=== PATIENT | male | born 1945 | race African-American/Black ===

== ENCOUNTER 2019-03-31 20:20 | Inpatient (IN) | payer MEDICARE, OTHER ==
[~2019-03-31] VITALS: Ht 180.3 cm; Wt 93.9 kg
[2019-03-31] MEDS ORDERED: ONDANSETRON HCL 4MG/2ML INJ IV STA (21:35)
[2019-03-31] MEDS ORDERED: MORPHINE SULFATE 4 MG/ML CPJ (NOT FOR IM USE) IV STA (21:35)
[2019-03-31 22:37] LABS: CLARITY URINE CLEAR (CLEAR); COLOR URINE YELLOW (YELLOW); KETONES URINE NEGATIVE (NEGATIVE); LEUKOCYTE ESTERASE URINE NEGATIVE (NEGATIVE); NITRITE URINE NEGATIVE (NEGATIVE); OCCULT BLOOD URINE NEGATIVE (NEGATIVE); PH URINE 5.5 (4.5-8.0); PROTEIN URINE TRACE (NEGATIVE); SPECIFIC GRAVITY URINE 1.008 (1.005-1.030); UROBILINOGEN URINE 0.2 E.U./dL (0.2-1.0)
[2019-03-31 22:46] LABS: *AMPHETAMINES SCREEN URINE NEGATIVE (NEGATIVE); *BARBITURATES SCREEN URINE NEGATIVE (NEGATIVE); *BENZODIAZEPINES SCREEN URINE NEGATIVE (NEGATIVE); *COCAINE SCREEN URINE NEGATIVE (NEGATIVE)
[2019-03-31 22:47] LABS: CANNABINOID URINE SCREEN NEGATIVE (NEGATIVE); METHADONE URINE SCREEN NEGATIVE (NEGATIVE); OPIATES URINE SCREEN NEGATIVE (NEGATIVE); PHENCYCLIDINE URINE SCREEN NEGATIVE (NEGATIVE)
[2019-03-31 23:00] LABS: BASOPHILS % 1.3 % (0.0-2.0); HEMATOCRIT. 40.5 % (42.0-52.0); HEMOGLOBIN. 13.3 g/dL (14.0-18.0); LYMPHOCYTES % 23.7 % (20.0-50.0); MEAN CORPUSCULAR HEMOGLOBIN 27.6 pg (28.0-32.0); MEAN CORPUSCULAR VOLUME 83.8 fL (80.0-94.0); MEAN PLATELET VOLUME 8.1 fl (7.4-10.4); MONOCYTES % 9.2 % (2.0-8.0); NEUTROPHILS % 61.8 % (40.0-76.0); PLATELET 176 x1000/uL (130-400); RED BLOOD CELL COUNT 4.83 mill/uL (4.7-6.1); RED CELL DISTRIBUTION WIDTH 18.6 % (11.6-14.6)
[2019-03-31 23:04] LABS: CHLORIDE 106 mEq/L (98-107)
[2019-03-31 23:06] LABS: INR 1.1; PARTIAL THROMBOPLASTIN TIME 29.3 sec (23.4-31.0); PROTHROMBIN TIME 11.6 sec (9.6-11.0)
[2019-03-31 23:09] LABS: ETHANOL BLOOD < 10 mg/dL
[2019-04-01] MEDS ORDERED: FUROSEMIDE 40MG/4ML VIAL IVP ONE (01:00)
[2019-04-01] MEDS ORDERED: ACETAMINOPHEN 650MG SUPP PR PRN (11:15)
[2019-04-01] MEDS ORDERED: CLONIDINE 0.1MG TABLET PO PRN (11:15)
[2019-04-01] MEDS ORDERED: MAGNESIUM/ALUMINUM HYDROXIDE/SIMETHICONE 30ML UDC PO PRN (11:15)
[2019-04-01] MEDS ORDERED: DOCUSATE SODIUM 100MG CAPSULE PO PRN (11:15)
[2019-04-01] MEDS ORDERED: ONDANSETRON HCL 4MG/2ML INJ IV PRN (11:15)
[2019-04-01] MEDS ORDERED: NA PHOS,M-B/NA PHOS,DI-BA ENEMA 118ML PR PRN (11:15)
[2019-04-01] MEDS ORDERED: DIPHENHYDRAMINE 50MG/ML VIAL IV PRN (11:15)
[2019-04-01] MEDS ORDERED: GUAIFENESIN 200MG/10ML SUGAR FREE UDC PO PRN (11:15)
[2019-04-01 12:42] LABS: BASOPHILS % 1.5 % (0.0-2.0); EOSINOPHILS % 6.5 % (0.0-5.0); HEMATOCRIT. 40.8 % (42.0-52.0); HEMOGLOBIN. 13.1 g/dL (14.0-18.0); LYMPHOCYTES % 28.8 % (20.0-50.0); MEAN CORPUSCULAR HEMOGLOBIN 27.1 pg (28.0-32.0); MEAN CORPUSCULAR VOLUME 84.3 fL (80.0-94.0); MONOCYTES % 10.8 % (2.0-8.0); NEUTROPHILS % 52.4 % (40.0-76.0); PLATELET 154 x1000/uL (130-400); RED BLOOD CELL COUNT 4.84 mill/uL (4.7-6.1); RED CELL DISTRIBUTION WIDTH 18.6 % (11.6-14.6)
[2019-04-01 12:51] LABS: CHLORIDE 108 mEq/L (98-107)
[2019-04-01] MEDS: FUROSEMIDE 40MG/4ML VIAL IV SCH (13:50)
[2019-04-01] MEDS ORDERED: ENOXAPARIN 40MG/0.4ML SYR SUBCUT SCH (14:00)
[2019-04-01] MEDS: SODIUM CHLORIDE 0.9% INJ 3ML FLUSH IVF SCH ×2 (14:03→22:23)
[2019-04-01 15:59] VITALS: BP 92/60
[2019-04-01 20:00] VITALS: BP 98/62
[2019-04-01 22:06] LABS: *BENZODIAZEPINES SCREEN URINE NEGATIVE (NEGATIVE); *COCAINE SCREEN URINE NEGATIVE (NEGATIVE)
[2019-04-01 22:07] LABS: *AMPHETAMINES SCREEN URINE NEGATIVE (NEGATIVE); *BARBITURATES SCREEN URINE NEGATIVE (NEGATIVE); CANNABINOID URINE SCREEN NEGATIVE (NEGATIVE); METHADONE URINE SCREEN NEGATIVE (NEGATIVE); OPIATES URINE SCREEN PRESUMTIVE POSITIVE (NEGATIVE); PHENCYCLIDINE URINE SCREEN NEGATIVE (NEGATIVE)
[2019-04-02] VITALS (7 sets, daily range): BP systolic 98–125; BP diastolic 65–76
[2019-04-02] MEDS: ACETAMINOPHEN 650MG/20.3ML UDC GT PRN (02:42)
[2019-04-02] MEDS: SODIUM CHLORIDE 0.9% INJ 3ML FLUSH IVF SCH ×3 (05:26→21:47)
[2019-04-02 07:27] LABS: BASOPHILS % 0.7 % (0.0-2.0); EOSINOPHILS % 5.1 % (0.0-5.0); HEMATOCRIT. 39.9 % (42.0-52.0); LYMPHOCYTES % 26.1 % (20.0-50.0); MEAN CORPUSCULAR HEMOGLOBIN 27.3 pg (28.0-32.0); MEAN CORPUSCULAR VOLUME 84.2 fL (80.0-94.0); MEAN PLATELET VOLUME 8.8 fl (7.4-10.4); NEUTROPHILS % 56.1 % (40.0-76.0); PLATELET 147 x1000/uL (130-400); RED BLOOD CELL COUNT 4.75 mill/uL (4.7-6.1); RED CELL DISTRIBUTION WIDTH 18.9 % (11.6-14.6)
[2019-04-02 08:04] LABS: CHLORIDE 107 mEq/L (98-107)
[2019-04-02 08:13] LABS: LDL CHOLESTEROL 83 mg/dL (5-100)
[2019-04-02] MEDS: FUROSEMIDE 40MG/4ML VIAL IV SCH (08:14)
[2019-04-02 08:15] LABS: HDL CHOLESTEROL 38 mg/dL (40-59)
[2019-04-02] MEDS: ENOXAPARIN 100MG/ML SYR SUBCUT SCH ×2 (12:52→21:50)
[2019-04-03] VITALS: BP 117/79
[2019-04-03 04:00] VITALS: BP 114/61
[2019-04-03] MEDS: SODIUM CHLORIDE 0.9% INJ 3ML FLUSH IVF SCH ×3 (05:52→21:25)
[2019-04-03 08:16] VITALS: BP 123/88
[2019-04-03] MEDS: ACETAMINOPHEN 650MG/20.3ML UDC GT PRN (08:23)
[2019-04-03] MEDS: ENOXAPARIN 100MG/ML SYR SUBCUT SCH ×2 (08:23→21:26)
[2019-04-03] MEDS: FUROSEMIDE 40MG/4ML VIAL IV SCH (08:23)
[2019-04-03] MEDS: ALBUTEROL (0.083%) 2.5MG/3ML NEB HHN SCH ×3 (08:40→21:15)
[2019-04-03 12:26] VITALS: BP 138/76
[2019-04-03 16:00] VITALS: BP 112/71
[2019-04-03 17:51] LABS: HEMATOCRIT. 40.6 % (42.0-52.0); LYMPHOCYTES % 28.3 % (20.0-50.0); MEAN CORPUSCULAR HEMOGLOBIN 27.3 pg (28.0-32.0); MEAN CORPUSCULAR VOLUME 85.2 fL (80.0-94.0); MEAN PLATELET VOLUME 9.4 fl (7.4-10.4); MONOCYTES % 13.9 % (2.0-8.0); NEUTROPHILS % 52.8 % (40.0-76.0); PLATELET 123 x1000/uL (130-400); RED BLOOD CELL COUNT 4.77 mill/uL (4.7-6.1); RED CELL DISTRIBUTION WIDTH 19.1 % (11.6-14.6)
[2019-04-03 18:04] LABS: CHLORIDE 105 mEq/L (98-107)
[2019-04-03] MEDS ORDERED: BISACODYL 10MG SUPP PR PRN (18:15)
[2019-04-03] MEDS: BISACODYL 5MG TABLET PO NR ×2 (18:18→18:22)
[2019-04-03 20:00] VITALS: BP 111/70
[2019-04-03] MEDS ORDERED: MAGNESIUM CITRATE 300ML SOLUTION PO NR (20:00)
[2019-04-03] MEDS: LACTULOSE 20G/30ML UDC PO SCH (21:25)
[2019-04-04] VITALS: BP 135/81
[2019-04-04] MEDS: HYDROCODONE/ACETAMINOPHEN 5/325MG TABLET PO PRN ×3 (00:01→19:20)
[2019-04-04] MEDS: ALBUTEROL (0.083%) 2.5MG/3ML NEB HHN SCH ×4 (01:14→21:58)
[2019-04-04 05:11] VITALS: BP 112/60
[2019-04-04] MEDS: SODIUM CHLORIDE 0.9% INJ 3ML FLUSH IVF SCH ×3 (06:02→21:45)
[2019-04-04] MEDS: LACTULOSE 20G/30ML UDC PO SCH ×3 (06:03→21:45)
[2019-04-04 07:05] LABS: HEPATITIS B SURFACE ANTIGEN NEGATIVE
[2019-04-04 07:34] LABS: HEPATITIS A AB IGM NEGATIVE (NEGATIVE)
[2019-04-04 08:00] VITALS: BP 119/93
[2019-04-04] MEDS: ENOXAPARIN 100MG/ML SYR SUBCUT SCH ×2 (09:00→21:46)
[2019-04-04] MEDS: FUROSEMIDE 40MG/4ML VIAL IV SCH (10:06)
[2019-04-04 12:00] VITALS: BP 112/73
[2019-04-04] MEDS ORDERED: DILTIAZEM HCL 5MG/ML 5ML VIAL IV PRN (12:30)
[2019-04-04 16:00] VITALS: BP 123/84
[2019-04-04] MEDS: DILTIAZEM HCL 30MG TABLET PO SCH (17:51)
[2019-04-04] MEDS: METHYLPREDNISOLONE SOD SUCC 40 MG/ML VIAL IV SCH (19:06)
[2019-04-04 20:00] VITALS: BP 117/81
[2019-04-05] VITALS: BP 110/71
[2019-04-05] MEDS: DILTIAZEM HCL 30MG TABLET PO SCH ×4 (01:38→18:36)
[2019-04-05] MEDS: METHYLPREDNISOLONE SOD SUCC 40 MG/ML VIAL IV SCH ×3 (01:52→18:36)
[2019-04-05 04:00] VITALS: BP 108/60
[2019-04-05] MEDS: SODIUM CHLORIDE 0.9% INJ 3ML FLUSH IVF SCH ×3 (05:44→22:39)
[2019-04-05] MEDS: LACTULOSE 20G/30ML UDC PO SCH ×2 (06:19→14:47)
[2019-04-05 08:00] VITALS: BP 106/81
[2019-04-05] MEDS: ALBUTEROL (0.083%) 2.5MG/3ML NEB HHN SCH ×3 (08:36→21:47)
[2019-04-05] MEDS: FUROSEMIDE 40MG/4ML VIAL IV SCH (09:44)
[2019-04-05] MEDS: ENOXAPARIN 100MG/ML SYR SUBCUT SCH ×2 (09:58→22:49)
[2019-04-05 12:02] VITALS: BP 114/75
[2019-04-05 16:00] VITALS: BP 108/54
[2019-04-05 20:00] VITALS: BP 101/69
[2019-04-05] MEDS: HYDROCODONE/ACETAMINOPHEN 5/325MG TABLET PO PRN (22:43)
[2019-04-06] VITALS: BP 113/88
[2019-04-06] MEDS: DILTIAZEM HCL 30MG TABLET PO SCH ×4 (00:07→19:53)
[2019-04-06] MEDS: ALBUTEROL (0.083%) 2.5MG/3ML NEB HHN SCH ×4 (03:05→22:12)
[2019-04-06] MEDS: METHYLPREDNISOLONE SOD SUCC 40 MG/ML VIAL IV SCH ×3 (03:24→19:53)
[2019-04-06 04:00] VITALS: BP 107/62
[2019-04-06] MEDS: SODIUM CHLORIDE 0.9% INJ 3ML FLUSH IVF SCH ×3 (05:09→22:00)
[2019-04-06 08:00] VITALS: BP 93/67
[2019-04-06] MEDS: ENOXAPARIN 100MG/ML SYR SUBCUT SCH (09:56)
[2019-04-06] MEDS: HYDROCODONE/ACETAMINOPHEN 5/325MG TABLET PO PRN (09:57)
[2019-04-06 12:00] VITALS: BP 106/78
[2019-04-06 14:22] LABS: HEMATOCRIT. 40.7 % (42.0-52.0); HEMOGLOBIN. 12.6 g/dL (14.0-18.0); MEAN CORPUSCULAR VOLUME 87.5 fL (80.0-94.0); MEAN PLATELET VOLUME 9.6 fl (7.4-10.4); PLATELET 122 x1000/uL (130-400); RED BLOOD CELL COUNT 4.65 mill/uL (4.7-6.1); RED CELL DISTRIBUTION WIDTH 18.6 % (11.6-14.6)
[2019-04-06 14:37] LABS: NUCLEATED RED BLOOD CELLS 1 /100 WBC
[2019-04-06 14:38] LABS: PLATELET ESTIMATE SLIGHTLY DECREASED
[2019-04-06 16:10] VITALS: BP 138/76
[2019-04-06] MEDS ORDERED: SODIUM POLYSTYRENE SULFONATE 15 G/60 ML BOT PO ONE ×2 (18:15)
[2019-04-06] MEDS ORDERED: SODIUM POLYSTYRENE SULFONATE 15 G/60 ML BOT PO NR (19:30)
[2019-04-06] MEDS: SODIUM CHLORIDE 0.9% 1,000 ML IV SCH (19:52)
[2019-04-06 20:00] VITALS: BP 100/67
[2019-04-06] MEDS: MORPHINE SULFATE 2 MG/ML CPJ (NOT FOR IM USE) IV PRN (21:31)
[2019-04-07] VITALS: BP 105/53
[2019-04-07 01:31] LABS: MONOTEST NEGATIVE (NEGATIVE)
[2019-04-07] MEDS: METHYLPREDNISOLONE SOD SUCC 40 MG/ML VIAL IV SCH ×2 (02:26→08:44)
[2019-04-07 04:00] VITALS: BP 90/76
[2019-04-07] MEDS: IPRATROPIUM/ALBUTEROL 0.5-3(2.5)MG/3ML NEB HHN PRN (05:14)
[2019-04-07] MEDS: SODIUM CHLORIDE 0.9% INJ 3ML FLUSH IVF SCH ×3 (05:17→20:23)
[2019-04-07] MEDS: DILTIAZEM HCL 30MG TABLET PO SCH ×4 (06:00→17:25)
[2019-04-07 08:35] LABS: HEMATOCRIT. 39.2 % (42.0-52.0); HEMOGLOBIN. 12.2 g/dL (14.0-18.0); MEAN CORPUSCULAR VOLUME 86.6 fL (80.0-94.0); MEAN PLATELET VOLUME 10.4 fl (7.4-10.4); PLATELET 111 x1000/uL (130-400); RED BLOOD CELL COUNT 4.53 mill/uL (4.7-6.1); RED CELL DISTRIBUTION WIDTH 18.6 % (11.6-14.6)
[2019-04-07 08:37] LABS: CHLORIDE 91 mEq/L (98-107)
[2019-04-07] MEDS: ENOXAPARIN 100MG/ML SYR SUBCUT SCH (08:45)
[2019-04-07 08:51] LABS: PHOSPHORUS 6.9 mg/dL (2.5-4.9)
[2019-04-07] MEDS: MORPHINE SULFATE 2 MG/ML CPJ (NOT FOR IM USE) IV PRN (10:22)
[2019-04-07] MEDS: SODIUM CHLORIDE 0.9% 1,000 ML IV SCH (10:55)
[2019-04-07 12:00] VITALS: BP 95/70
[2019-04-07] MEDS: ALBUTEROL (0.083%) 2.5MG/3ML NEB HHN SCH ×2 (12:39→20:46)
[2019-04-07 14:22] LABS: NUCLEATED RED BLOOD CELLS 3 /100 WBC; PLATELET ESTIMATE DECREASED
[2019-04-07 16:00] VITALS: BP 116/65
[2019-04-07 20:00] VITALS: BP 130/106
[2019-04-08] VITALS: BP 111/57
[2019-04-08 04:00] VITALS: BP 97/64
[2019-04-08] MEDS: DILTIAZEM HCL 30MG TABLET PO SCH ×4 (05:47→17:29)
[2019-04-08] MEDS: SODIUM CHLORIDE 0.9% 1,000 ML IV SCH ×2 (05:47→20:52)
[2019-04-08] MEDS: SODIUM CHLORIDE 0.9% INJ 3ML FLUSH IVF SCH ×3 (05:47→20:53)
[2019-04-08] MEDS: ALBUTEROL (0.083%) 2.5MG/3ML NEB HHN SCH ×4 (07:57→21:37)
[2019-04-08] MEDS: METHYLPREDNISOLONE SOD SUCC 40 MG/ML VIAL IV SCH (08:29)
[2019-04-08] MEDS: ENOXAPARIN 100MG/ML SYR SUBCUT SCH (08:29)
[2019-04-08 08:33] LABS: HEMATOCRIT. 38.8 % (42.0-52.0); HEMOGLOBIN. 12.4 g/dL (14.0-18.0); MEAN CORPUSCULAR HEMOGLOBIN 27.1 pg (28.0-32.0); MEAN CORPUSCULAR VOLUME 84.6 fL (80.0-94.0); MEAN PLATELET VOLUME 11.1 fl (7.4-10.4); PLATELET 94 x1000/uL (130-400); RED BLOOD CELL COUNT 4.59 mill/uL (4.7-6.1); RED CELL DISTRIBUTION WIDTH 18.2 % (11.6-14.6)
[2019-04-08 08:37] LABS: CHLORIDE 89 mEq/L (98-107)
[2019-04-08 08:46] VITALS: BP 97/64
[2019-04-08 11:57] VITALS: BP 98/62
[2019-04-08 14:04] LABS: INR 2.4; PROTHROMBIN TIME 23.7 sec (9.6-11.0)
[2019-04-08 14:34] LABS: NUCLEATED RED BLOOD CELLS 5 /100 WBC; PLATELET ESTIMATE DECREASED
[2019-04-08] MEDS ORDERED: ALBUMIN HUMAN 25GM/100ML (25%) IV NR (15:45)
[2019-04-08 16:10] VITALS: BP 135/91
[2019-04-08 20:00] VITALS: BP 107/81
[2019-04-08] MEDS: RIFAXIMIN 550 MG TABLET PO SCH (20:51)
[2019-04-08] MEDS: PHYTONADIONE 10MG/ML AMP SUBCUT SCH (20:52)
[2019-04-09] VITALS (9 sets, daily range): BP systolic 98–120; BP diastolic 54–76
[2019-04-09] MEDS ORDERED: LACTULOSE 20G/30ML UDC PO SCH (01:30)
[2019-04-09] MEDS: ALBUTEROL (0.083%) 2.5MG/3ML NEB HHN SCH ×3 (02:38→21:13)
[2019-04-09] MEDS: DILTIAZEM HCL 30MG TABLET PO SCH ×4 (05:00→17:44)
[2019-04-09] MEDS: SODIUM CHLORIDE 0.9% INJ 3ML FLUSH IVF SCH ×3 (05:00→20:53)
[2019-04-09 07:03] LABS: PHOSPHORUS 7.4 mg/dL (2.5-4.9)
[2019-04-09 07:09] LABS: HEMATOCRIT. 38.3 % (42.0-52.0); HEMOGLOBIN. 12.4 g/dL (14.0-18.0); MEAN CORPUSCULAR HEMOGLOBIN 27.3 pg (28.0-32.0); MEAN CORPUSCULAR VOLUME 84.1 fL (80.0-94.0); MEAN PLATELET VOLUME 10.2 fl (7.4-10.4); RED BLOOD CELL COUNT 4.55 mill/uL (4.7-6.1); RED CELL DISTRIBUTION WIDTH 18.2 % (11.6-14.6)
[2019-04-09] MEDS: METHYLPREDNISOLONE SOD SUCC 40 MG/ML VIAL IV SCH (09:17)
[2019-04-09] MEDS: PHYTONADIONE 10MG/ML AMP SUBCUT SCH (09:29)
[2019-04-09] MEDS: RIFAXIMIN 550 MG TABLET PO SCH ×2 (09:29→20:52)
[2019-04-09 11:40] LABS: NUCLEATED RED BLOOD CELLS 4 /100 WBC
[2019-04-09 11:46] LABS: PLATELET 72 x1000/uL (130-400)
[2019-04-09 12:45] LABS: CHLORIDE 98 mEq/L (98-107)
[2019-04-09] MEDS: SODIUM CHLORIDE 0.9% 1,000 ML IV SCH (15:43)
[2019-04-10] VITALS (7 sets, daily range): BP systolic 94–133; BP diastolic 61–87
[2019-04-10] MEDS: DILTIAZEM HCL 30MG TABLET PO SCH ×4 (01:13→18:00)
[2019-04-10] MEDS: IPRATROPIUM/ALBUTEROL 0.5-3(2.5)MG/3ML NEB HHN PRN (01:43)
[2019-04-10] MEDS: ALBUTEROL (0.083%) 2.5MG/3ML NEB HHN SCH ×4 (01:45→21:47)
[2019-04-10] MEDS: SODIUM CHLORIDE 0.9% INJ 3ML FLUSH IVF SCH ×3 (05:31→21:51)
[2019-04-10] MEDS: METHYLPREDNISOLONE SOD SUCC 40 MG/ML VIAL IV SCH (09:32)
[2019-04-10] MEDS: ACETAMINOPHEN 650MG/20.3ML UDC GT PRN ×2 (09:45→21:50)
[2019-04-10] MEDS: RIFAXIMIN 550 MG TABLET PO SCH ×2 (09:45→21:50)
[2019-04-10] MEDS: PHYTONADIONE 10MG/ML AMP SUBCUT SCH (09:46)
[2019-04-10] MEDS ORDERED: ALBU2.5V13 HHN (17:40)
[2019-04-10] MEDS ORDERED: DILT30TA38 PO (17:40)
[2019-04-10] MEDS: SODIUM CHLORIDE 0.9% 1,000 ML IV SCH ×2 (21:52→22:15)
[2019-04-11] VITALS: BP 130/84
[2019-04-11] MEDS: DILTIAZEM HCL 30MG TABLET PO SCH ×4 (00:11→18:00)
[2019-04-11] MEDS: AMPICILLIN 500 MG PO SCH ×2 (00:13→11:04)
[2019-04-11] MEDS: ALBUTEROL (0.083%) 2.5MG/3ML NEB HHN SCH ×4 (01:39→21:17)
[2019-04-11 04:00] VITALS: BP 122/71
[2019-04-11] MEDS: SODIUM CHLORIDE 0.9% INJ 3ML FLUSH IVF SCH ×3 (06:38→21:06)
[2019-04-11 06:54] LABS: PHOSPHORUS 7.2 mg/dL (2.5-4.9)
[2019-04-11 07:08] LABS: INR 1.4; PROTHROMBIN TIME 14.2 sec (9.6-11.0)
[2019-04-11 07:09] LABS: HEMATOCRIT. 39.8 % (42.0-52.0); HEMOGLOBIN. 12.9 g/dL (14.0-18.0); MEAN CORPUSCULAR HEMOGLOBIN 27.3 pg (28.0-32.0); MEAN CORPUSCULAR VOLUME 83.9 fL (80.0-94.0); RED BLOOD CELL COUNT 4.74 mill/uL (4.7-6.1); RED CELL DISTRIBUTION WIDTH 17.8 % (11.6-14.6)
[2019-04-11 08:00] VITALS: BP 103/67
[2019-04-11 08:36] LABS: NUCLEATED RED BLOOD CELLS 27 /100 WBC
[2019-04-11 08:43] LABS: MEAN PLATELET VOLUME 10.5 fl (7.4-10.4); PLATELET 49 x1000/uL (130-400)
[2019-04-11] MEDS: RIFAXIMIN 550 MG TABLET PO SCH ×2 (10:56→21:06)
[2019-04-11 11:52] LABS: D-DIMER 2.26 mg/L FEU (<0.50)
[2019-04-11 12:00] VITALS: BP 124/65
[2019-04-11] MEDS: SODIUM CHLORIDE 0.9% 1,000 ML IV SCH (14:55)
[2019-04-11 16:45] VITALS: BP 125/72
[2019-04-12] MEDS: AMPICILLIN 500 MG PO SCH ×3 (00:15→21:00)
[2019-04-12 00:25] VITALS: BP 110/73
[2019-04-12] MEDS: ALBUTEROL (0.083%) 2.5MG/3ML NEB HHN SCH ×3 (02:53→21:58)
[2019-04-12 04:00] VITALS: BP 105/60
[2019-04-12] MEDS: SODIUM CHLORIDE 0.9% INJ 3ML FLUSH IVF SCH ×3 (05:15→22:15)
[2019-04-12] MEDS: DILTIAZEM HCL 30MG TABLET PO SCH ×4 (05:16→18:00)
[2019-04-12 06:30] LABS: HEMATOCRIT. 40.4 % (42.0-52.0); HEMOGLOBIN. 13.2 g/dL (14.0-18.0); MEAN CORPUSCULAR HEMOGLOBIN 27.5 pg (28.0-32.0); RED BLOOD CELL COUNT 4.81 mill/uL (4.7-6.1); RED CELL DISTRIBUTION WIDTH 18.4 % (11.6-14.6)
[2019-04-12 06:32] LABS: INR 1.3; PROTHROMBIN TIME 13.4 sec (9.6-11.0)
[2019-04-12 06:39] LABS: CHLORIDE 99 mEq/L (98-107)
[2019-04-12 06:56] LABS: AMYLASE 241 IU/L (25-115)
[2019-04-12 07:00] LABS: CREATINE KINASE 129 IU/L (39-308)
[2019-04-12] MEDS: SODIUM CHLORIDE 0.9% 1,000 ML IV SCH (07:35)
[2019-04-12 07:50] LABS: NUCLEATED RED BLOOD CELLS 30 /100 WBC
[2019-04-12 07:51] LABS: PLATELET ESTIMATE DECREASED
[2019-04-12 07:52] LABS: PLATELET 52 x1000/uL (130-400)
[2019-04-12 08:00] VITALS: BP 109/76
[2019-04-12] MEDS ORDERED: MORPHINE SULFATE 2 MG/ML CPJ (NOT FOR IM USE) IV NR (08:00)
[2019-04-12] MEDS ORDERED: SODIUM BICARBONATE 4% (2.4MEQ) 5ML VIAL IV ONE (08:12)
[2019-04-12] MEDS ORDERED: LIDOCAINE HCL 1% 20ML VIAL (Pyxis) INJ ONE (08:12)
[2019-04-12] MEDS ORDERED: CEFAZOLIN 1000MG PREMIX 50 ML IV SCH (10:00)
[2019-04-12] MEDS: RIFAXIMIN 550 MG TABLET PO SCH ×2 (10:18→22:15)
[2019-04-12 12:00] VITALS: BP 116/73
[2019-04-12] MEDS: SORBITOL 70% SOLN 30ML PO SCH (12:14)
[2019-04-12] MEDS: DOCUSATE SODIUM 250MG CAPSULE PO SCH ×2 (12:14→19:41)
[2019-04-12 13:06] LABS: ACTIN (SMOOTH MUSCLE) ANTIBODY 10 Units (0-19)
[2019-04-12] MEDS ORDERED: AMPICILLIN 1,000 MG in SODIUM CHLORIDE 0.9% 50 ML IV SCH (13:30)
[2019-04-12] MEDS: AMPICILLIN 1000MG in SODIUM CHLORIDE 0.9% 50ML IV SCH (19:40)
[2019-04-12 20:00] VITALS: BP 105/70
[2019-04-12] MEDS ORDERED: BISACODYL 5MG TABLET PO NR (20:45)
[2019-04-12] MEDS: LACTULOSE 20G/30ML UDC PO SCH (22:15)
[2019-04-13] VITALS (11 sets, daily range): BP systolic 100–137; BP diastolic 50–90
[2019-04-13] MEDS: ALBUTEROL (0.083%) 2.5MG/3ML NEB HHN SCH ×4 (01:32→21:27)
[2019-04-13] MEDS: DILTIAZEM HCL 30MG TABLET PO SCH ×4 (02:51→17:49)
[2019-04-13] MEDS: AMPICILLIN 1000MG in SODIUM CHLORIDE 0.9% 50ML IV SCH ×2 (02:51→15:23)
[2019-04-13] MEDS: SODIUM CHLORIDE 0.9% 1,000 ML IV SCH ×2 (02:53→17:46)
[2019-04-13] MEDS: LACTULOSE 20G/30ML UDC PO SCH ×3 (06:21→22:59)
[2019-04-13] MEDS: SODIUM CHLORIDE 0.9% INJ 3ML FLUSH IVF SCH ×3 (06:21→22:00)
[2019-04-13 07:53] LABS: HEMATOCRIT. 38.4 % (42.0-52.0); HEMOGLOBIN. 12.4 g/dL (14.0-18.0); MEAN CORPUSCULAR HEMOGLOBIN 27.2 pg (28.0-32.0); RED BLOOD CELL COUNT 4.57 mill/uL (4.7-6.1); RED CELL DISTRIBUTION WIDTH 17.8 % (11.6-14.6)
[2019-04-13 08:16] LABS: PHOSPHORUS 6.4 mg/dL (2.5-4.9)
[2019-04-13] MEDS ORDERED: DOCUSATE SODIUM 250MG CAPSULE PO SCH (09:00)
[2019-04-13] MEDS: AMPICILLIN 500 MG PO SCH (09:00)
[2019-04-13] MEDS: SORBITOL 70% SOLN 30ML PO SCH (09:07)
[2019-04-13] MEDS: DOCUSATE SODIUM 250MG CAPSULE PO SCH ×2 (09:07→17:00)
[2019-04-13 09:19] LABS: NUCLEATED RED BLOOD CELLS 12 /100 WBC
[2019-04-13 13:06] LABS: ANA IFA Negative (.)
[2019-04-13] MEDS ORDERED: BISACODYL 5MG TABLET PO ONE (17:45)
[2019-04-13] MEDS ORDERED: BISACODYL 5MG TABLET PO NR (18:00)
[2019-04-14] VITALS: BP 96/68
[2019-04-14] MEDS: ALBUTEROL (0.083%) 2.5MG/3ML NEB HHN SCH ×4 (00:12→21:29)
[2019-04-14] MEDS: AMPICILLIN 1000MG in SODIUM CHLORIDE 0.9% 50ML IV SCH ×2 (03:03→14:47)
[2019-04-14 04:00] VITALS: BP 94/60
[2019-04-14] MEDS: DILTIAZEM HCL 30MG TABLET PO SCH ×5 (06:00→23:14)
[2019-04-14] MEDS: SODIUM CHLORIDE 0.9% INJ 3ML FLUSH IVF SCH ×3 (06:00→21:02)
[2019-04-14] MEDS: LACTULOSE 20G/30ML UDC PO SCH ×2 (06:24→14:47)
[2019-04-14 07:11] LABS: HEMATOCRIT. 40.8 % (42.0-52.0); MEAN CORPUSCULAR VOLUME 84.4 fL (80.0-94.0); MEAN PLATELET VOLUME 9.1 fl (7.4-10.4); PLATELET 67 x1000/uL (130-400); RED BLOOD CELL COUNT 4.83 mill/uL (4.7-6.1); RED CELL DISTRIBUTION WIDTH 17.7 % (11.6-14.6)
[2019-04-14 08:00] VITALS: BP 111/86
[2019-04-14 08:06] LABS: PHOSPHORUS 4.8 mg/dL (2.5-4.9)
[2019-04-14] MEDS: SODIUM CHLORIDE 0.9% 1,000 ML IV SCH ×2 (09:35→18:42)
[2019-04-14 09:55] LABS: NUCLEATED RED BLOOD CELLS 1 /100 WBC
[2019-04-14 09:56] LABS: PLATELET ESTIMATE DECREASED
[2019-04-14] MEDS: DOCUSATE SODIUM 250MG CAPSULE PO SCH ×2 (10:40→17:19)
[2019-04-14] MEDS: SORBITOL 70% SOLN 30ML PO SCH (10:40)
[2019-04-14 12:00] VITALS: BP 108/67
[2019-04-14] MEDS: ACETAMINOPHEN 650MG/20.3ML UDC GT PRN (13:38)
[2019-04-14 15:51] LABS: INR 1.4; PROTHROMBIN TIME 13.8 sec (9.6-11.0)
[2019-04-14 16:00] VITALS: BP 103/64
[2019-04-14 18:19] LABS: HEMATOCRIT. 37.6 % (42.0-52.0); HEMOGLOBIN. 12.1 g/dL (14.0-18.0); MEAN CORPUSCULAR HEMOGLOBIN 26.9 pg (28.0-32.0); MEAN PLATELET VOLUME 8.9 fl (7.4-10.4); PLATELET 79 x1000/uL (130-400); RED BLOOD CELL COUNT 4.48 mill/uL (4.7-6.1); RED CELL DISTRIBUTION WIDTH 17.9 % (11.6-14.6)
[2019-04-14] MEDS: HYDROCODONE/ACETAMINOPHEN 5/325MG TABLET PO PRN ×2 (18:30→23:10)
[2019-04-14 19:52] LABS: NUCLEATED RED BLOOD CELLS 2 /100 WBC; PLATELET ESTIMATE DECREASED
[2019-04-14 20:00] VITALS: BP 100/72
[2019-04-14] MEDS ORDERED: LACTULOSE 20G/30ML UDC PO SCH (20:30)
[2019-04-14] MEDS ORDERED: VANCOMYCIN 1250MG in DEXTROSE 5% WATER 250ML IV SCH (21:00)
[2019-04-14] MEDS ORDERED: LACTULOSE 20G/30ML UDC PO PRN (21:00)
[2019-04-15] VITALS: BP 106/67
[2019-04-15] MEDS: ALBUTEROL (0.083%) 2.5MG/3ML NEB HHN SCH ×2 (01:13→09:53)
[2019-04-15] MEDS: AMPICILLIN 1000MG in SODIUM CHLORIDE 0.9% 50ML IV SCH ×2 (02:22→14:05)
[2019-04-15 04:00] VITALS: BP 110/69
[2019-04-15] MEDS: SODIUM CHLORIDE 0.9% INJ 3ML FLUSH IVF SCH (05:11)
[2019-04-15] MEDS: DILTIAZEM HCL 30MG TABLET PO SCH ×3 (05:12→14:16)
[2019-04-15 06:50] LABS: BASOPHILS % 0.1 % (0.0-2.0); EOSINOPHILS % 0.5 % (0.0-5.0); HEMATOCRIT. 35.8 % (42.0-52.0); HEMOGLOBIN. 11.9 g/dL (14.0-18.0); LYMPHOCYTES % 9.7 % (20.0-50.0); MEAN CORPUSCULAR HEMOGLOBIN 27.7 pg (28.0-32.0); MEAN CORPUSCULAR VOLUME 83.6 fL (80.0-94.0); MEAN PLATELET VOLUME 9.1 fl (7.4-10.4); MONOCYTES % 9.1 % (2.0-8.0); NEUTROPHILS % 80.6 % (40.0-76.0); PLATELET 75 x1000/uL (130-400); RED BLOOD CELL COUNT 4.28 mill/uL (4.7-6.1); RED CELL DISTRIBUTION WIDTH 17.2 % (11.6-14.6)
[2019-04-15 07:34] LABS: PHOSPHORUS 4.7 mg/dL (2.5-4.9)
[2019-04-15 08:00] VITALS: BP 95/61
[2019-04-15] MEDS: DOCUSATE SODIUM 250MG CAPSULE PO SCH (09:30)
[2019-04-15] MEDS: SORBITOL 70% SOLN 30ML PO SCH (09:30)
[2019-04-15 12:00] VITALS: BP 111/64
[2019-04-15 13:29] VITALS: BP 111/64
== END 2019-04-15 15:00 | DRG 291 ==
LOC: ER 20:20 → 7WST 04-01 01:26 → ENRESERV 04-01 10:38
PROVIDERS: ADMIT Family Medicine; ATTEND Family Medicine
PROC: B54BZZA Ultrasonography of Right Lower Extremity Veins, Guidance (ICD-10-PCS; principal; 2019-04-08)
PROC: 06HY33Z Insertion of Infusion Device into Lower Vein, Percutaneous Approach (ICD-10-PCS; 2019-04-08)
PROC: B51B1ZA Fluoroscopy of Right Lower Extremity Veins using Low Osmolar Contrast, Guidance (ICD-10-PCS; 2019-04-08)
PROC: 5A1D70Z Performance of Urinary Filtration, Intermittent, Less than 6 Hours Per Day (ICD-10-PCS; 2019-04-08)
PROC: 30233K1 Transfusion of Nonautologous Frozen Plasma into Peripheral Vein, Percutaneous Approach (ICD-10-PCS; 2019-04-09)
PROC: 5A1D70Z Performance of Urinary Filtration, Intermittent, Less than 6 Hours Per Day (ICD-10-PCS; 2019-04-09)
PROC: 5A1D70Z Performance of Urinary Filtration, Intermittent, Less than 6 Hours Per Day (ICD-10-PCS; 2019-04-11)
PROC: 02HV33Z Insertion of Infusion Device into Superior Vena Cava, Percutaneous Approach (ICD-10-PCS; 2019-04-12)
PROC: B548ZZA Ultrasonography of Superior Vena Cava, Guidance (ICD-10-PCS; 2019-04-12)
PROC: B5181ZA Fluoroscopy of Superior Vena Cava using Low Osmolar Contrast, Guidance (ICD-10-PCS; 2019-04-12)
PROC: 0JH63XZ Insertion of Tunneled Vascular Access Device into Chest Subcutaneous Tissue and Fascia, Percutaneous Approach (ICD-10-PCS; 2019-04-12)
PROC: 30233N1 Transfusion of Nonautologous Red Blood Cells into Peripheral Vein, Percutaneous Approach (ICD-10-PCS; 2019-04-13)
PROC: 5A1D70Z Performance of Urinary Filtration, Intermittent, Less than 6 Hours Per Day (ICD-10-PCS; 2019-04-13)
DX: I13.0 Hypertensive heart and chronic kidney disease with heart failure and stage 1 through stage 4 chronic kidney disease, or unspecified chronic kidney disease (principal); I50.23 Acute on chronic systolic (congestive) heart failure; K72.00 Acute and subacute hepatic failure without coma; K85.90 Acute pancreatitis without necrosis or infection, unspecified; I48.92 Unspecified atrial flutter; R18.8 Other ascites; N17.9 Acute kidney failure, unspecified; I48.20 Chronic atrial fibrillation, unspecified; N39.0 Urinary tract infection, site not specified; J44.9 Chronic obstructive pulmonary disease, unspecified; I25.10 Atherosclerotic heart disease of native coronary artery without angina pectoris; I42.9 Cardiomyopathy, unspecified; K59.00 Constipation, unspecified; D69.6 Thrombocytopenia, unspecified; E83.39 Other disorders of phosphorus metabolism; N28.1 Cyst of kidney, acquired; E87.5 Hyperkalemia; N18.9 Chronic kidney disease, unspecified; R74.0 Nonspecific elevation of levels of transaminase and lactic acid dehydrogenase [LDH]; B95.2 Enterococcus as the cause of diseases classified elsewhere; F10.20 Alcohol dependence, uncomplicated; I25.2 Old myocardial infarction; Z86.718 Personal history of other venous thrombosis and embolism; Z95.810 Presence of automatic (implantable) cardiac defibrillator; Z95.828 Presence of other vascular implants and grafts; Z86.19 Personal history of other infectious and parasitic diseases; Z87.891 Personal history of nicotine dependence; Z88.8 Allergy status to other drugs, medicaments and biological substances
CPT/HCPCS: 36415; 36558; 71045; 73630; 74018; 74176; 76700; 76770; 76937; 77001; 80048; 80053; 80061; 80076; 80305; 80307; 80320; 81003; 82140; 82150; 82248; 82550; 82570; 83605; 83735; 83880; 83935; 84100; 84132; 84145; 84300; 84484; 85025; 85049; 85379; 85384; 86022; 86256; 86308; 86645; 86705; 86706; 86709; 86803; 86850; 86900; 86927; 87077; 87186; 87340; 87389; 93005; 93306; 93976; 94618; 94640; 97116; 97162; 99285; A6261; C1750; C1752; C1769; J0290; J0690; J1200; J1642; J1650; J1940; J2270; J2405; J2920; J3370; J3430; J3490; J7030; J7060; J7611; J7620; P9017; P9034; P9047; G0480

== ENCOUNTER 2019-04-16 11:45 | Inpatient (IN) | payer MEDICARE, OTHER ==
[~2019-04-16] VITALS: Ht 154.3 cm; Wt 96.2 kg
[2019-04-16] VITALS (23 sets, daily range): BP systolic 71–126; BP diastolic 39–95
[~2019-04-16 11:45] MED LIST: ALBU2.5V13 HHN; DILT30TA38 PO
[2019-04-16] MEDS ORDERED: SODIUM CHLORIDE 0.9% 500 ML IV ONE (12:14)
[2019-04-16] MEDS ORDERED: NOREPINEPHRINE 4MG/250ML PMX 250 ML IV ONE ×2 (12:30→15:30)
[2019-04-16 12:33] LABS: HEMATOCRIT. 34.8 % (42.0-52.0); HEMOGLOBIN. 11.3 g/dL (14.0-18.0); MEAN CORPUSCULAR HEMOGLOBIN 27.6 pg (28.0-32.0); MEAN CORPUSCULAR VOLUME 85.2 fL (80.0-94.0); MEAN PLATELET VOLUME 9.3 fl (7.4-10.4); PLATELET 66 x1000/uL (130-400); RED BLOOD CELL COUNT 4.08 mill/uL (4.7-6.1); RED CELL DISTRIBUTION WIDTH 17.8 % (11.6-14.6)
[2019-04-16 12:36] LABS: CHLORIDE 101 mEq/L (98-107)
[2019-04-16 12:42] LABS: INR 1.4; PROTHROMBIN TIME 13.9 sec (9.6-11.0)
[2019-04-16] MEDS ORDERED: SODIUM CHLORIDE 0.9% 1000ML BAG (SEPSIS BOLUS) IV ONE (13:15)
[2019-04-16] MEDS ORDERED: PIPERACILLIN/TAZ 3.375G PREMIX 50 ML IV ONE (13:15)
[2019-04-16] MEDS ORDERED: VANCOMYCIN 1 G PREMIX 200 ML IV ONE (13:15)
[2019-04-16] MEDS ORDERED: SODIUM BICARBONATE 4% (2.4MEQ) 5ML VIAL IV ONE (13:23)
[2019-04-16 13:40] LABS: PLATELET ESTIMATE DECREASED
[2019-04-16] MEDS ORDERED: IPRATROPIUM/ALBUTEROL 0.5-3(2.5)MG/3ML NEB HHN PRN (15:30)
[2019-04-16] MEDS ORDERED: NOREPINEPHRINE 8 MG in DEXT 5% WATER 242 ML IV PRN ×2 (15:30→18:00)
[2019-04-16 16:04] LABS: CLARITY URINE CLOUDY (CLEAR); COLOR URINE DARK YELLOW (YELLOW); KETONES URINE NEGATIVE (NEGATIVE); LEUKOCYTE ESTERASE URINE NEGATIVE (NEGATIVE); NITRITE URINE NEGATIVE (NEGATIVE); OCCULT BLOOD URINE NEGATIVE (NEGATIVE); PROTEIN URINE 2+ (NEGATIVE); SPECIFIC GRAVITY URINE 1.014 (1.005-1.030)
[2019-04-16 17:04] LABS: BG BASE EXCESS -4.3 mmol/L (-2.0-2.0); BG CARBOXYHEMOGLOBIN 0.6 % (0.5-1.5); BG DEOXYHEMOGLOBIN 0.7 % (0.0-5.0); BG FRACTION INSPIRED OXYGEN 100; BG HCO3 ACT 19.8 mmol/L (22.0-26.0); BG METHEMOGLOBIN 0.3 % (0.0-1.5); BG OXYGEN SATURATION 99.3 % (92.0-98.5); BG OXYHEMOGLOBIN 98.4 % (94.0-97.0); BG PCO2 33.4 mmHg (35.0-45.0); BG PH 7.391 (7.350-7.450); BG PO2 216.7 mmHg (75.0-100.0); BG SAMPLE SITE RIGHT RADIAL; BG TOTAL HEMOGLOBIN 12.2 g/dL (12.0-18.0); BG VENT MODE MASK - NRB
[2019-04-16] MEDS ORDERED: PHENYLEPHRINE 40 MG in DEXT 5% WATER 246 ML IV PRN ×2 (18:45→22:49)
[2019-04-16] MEDS ORDERED: NOREPINEPHRINE 32 MG in DEXT 5% WATER 468 ML IV PRN ×2 (22:49→23:00)
[2019-04-16] MEDS ORDERED: PHENYLEPHRINE 80 MG in DEXT 5% WATER 492 ML IV PRN (22:59)
[2019-04-16] MEDS: PIPERACILLIN/TAZOBACTAM 2.25 G in DEXTROSE 5% WATER 50 ML IV SCH (23:52)
[2019-04-17] VITALS (105 sets, daily range): BP systolic 72–209; BP diastolic 16–131
[2019-04-17] MEDS ORDERED: VANCOMYCIN 750 MG PREMIX 150 ML IV SCH (02:00)
[2019-04-17 02:01] LABS: T4 FREE 1.02 ng/dL (0.76-1.46)
[2019-04-17] MEDS: PIPERACILLIN/TAZOBACTAM 2.25 G in DEXTROSE 5% WATER 50 ML IV SCH ×3 (05:01→16:36)
[2019-04-17 07:50] LABS: BG BASE EXCESS -1.4 mmol/L (-2.0-2.0); BG CARBOXYHEMOGLOBIN 0.9 % (0.5-1.5); BG DEOXYHEMOGLOBIN 1.9 % (0.0-5.0); BG FRACTION INSPIRED OXYGEN 28; BG HCO3 ACT 21.4 mmol/L (22.0-26.0); BG METHEMOGLOBIN 0.3 % (0.0-1.5); BG OXYGEN SATURATION 98.1 % (92.0-98.5); BG OXYHEMOGLOBIN 96.9 % (94.0-97.0); BG PCO2 30.2 mmHg (35.0-45.0); BG PH 7.469 (7.350-7.450); BG SAMPLE SITE RIGHT BRACHIAL; BG TOTAL HEMOGLOBIN 11.8 g/dL (12.0-18.0); BG VENT MODE NASAL CANNULA
[2019-04-17] MEDS ORDERED: ALBUMIN HUMAN 25GM/100ML (25%) IV SCH (08:15)
[2019-04-17] MEDS: TRAMADOL 50MG TABLET PO PRN (08:43)
[2019-04-17] MEDS: PANTOPRAZOLE SODIUM 40 MG/VIAL IV SCH (08:44)
[2019-04-17 09:15] LABS: HEMATOCRIT. 35.5 % (42.0-52.0); HEMOGLOBIN. 11.6 g/dL (14.0-18.0); MEAN CORPUSCULAR HEMOGLOBIN 27.3 pg (28.0-32.0); MEAN CORPUSCULAR VOLUME 83.8 fL (80.0-94.0); PLATELET 82 x1000/uL (130-400); RED BLOOD CELL COUNT 4.23 mill/uL (4.7-6.1); RED CELL DISTRIBUTION WIDTH 17.8 % (11.6-14.6)
[2019-04-17 09:29] LABS: CHLORIDE 106 mEq/L (98-107)
[2019-04-17 09:37] LABS: PHOSPHORUS 4.1 mg/dL (2.5-4.9)
[2019-04-17] MEDS: HYDROCORTISONE SOD SUCCINATE 100 MG/2 ML VIAL IV SCH ×2 (11:03→19:38)
[2019-04-17] MEDS: MORPHINE SULFATE 2 MG/ML CPJ (NOT FOR IM USE) IV PRN ×2 (11:04→17:02)
[2019-04-17 11:41] LABS: NUCLEATED RED BLOOD CELLS 1 /100 WBC
[2019-04-17 11:42] LABS: PLATELET ESTIMATE DECREASED
[2019-04-18] VITALS (94 sets, daily range): BP systolic 78–158; BP diastolic 15–96
[2019-04-18] MEDS: IPRATROPIUM/ALBUTEROL 0.5-3(2.5)MG/3ML NEB HHN SCH ×4 (00:23→20:50)
[2019-04-18] MEDS: PIPERACILLIN/TAZOBACTAM 2.25 G in DEXTROSE 5% WATER 50 ML IV SCH ×5 (00:55→23:23)
[2019-04-18] MEDS: HYDROCORTISONE SOD SUCCINATE 100 MG/2 ML VIAL IV SCH ×3 (04:18→20:43)
[2019-04-18 05:41] LABS: HEMATOCRIT. 35.7 % (42.0-52.0); HEMOGLOBIN. 11.7 g/dL (14.0-18.0); MEAN CORPUSCULAR HEMOGLOBIN 27.8 pg (28.0-32.0); MEAN CORPUSCULAR VOLUME 84.7 fL (80.0-94.0); MEAN PLATELET VOLUME 9.6 fl (7.4-10.4); PLATELET 77 x1000/uL (130-400); RED BLOOD CELL COUNT 4.22 mill/uL (4.7-6.1); RED CELL DISTRIBUTION WIDTH 17.7 % (11.6-14.6)
[2019-04-18 05:50] LABS: CHLORIDE 99 mEq/L (98-107)
[2019-04-18 05:59] LABS: PHOSPHORUS 5.5 mg/dL (2.5-4.9)
[2019-04-18 07:30] LABS: PLATELET ESTIMATE SLIGHTLY DECREASED
[2019-04-18] MEDS: PANTOPRAZOLE SODIUM 40 MG/VIAL IV SCH (08:23)
[2019-04-18] MEDS: MORPHINE SULFATE 2 MG/ML CPJ (NOT FOR IM USE) IV PRN (08:25)
[2019-04-18] MEDS ORDERED: PHENYLEPHRINE 40 MG in DEXT 5% WATER 250 ML IV PRN (10:53)
[2019-04-18] MEDS: MIDODRINE HCL 2.5MG TABLET PO SCH ×2 (13:05→16:48)
[2019-04-18] MEDS ORDERED: VANCOMYCIN 750 MG PREMIX 150 ML IV NR (17:00)
[2019-04-18] MEDS ORDERED: NOREPINEPHRINE 16 MG in DEXT 5% WATER 250 ML IV PRN (21:41)
[2019-04-19] VITALS (47 sets, daily range): BP systolic 86–174; BP diastolic 41–117
[2019-04-19] MEDS: IPRATROPIUM/ALBUTEROL 0.5-3(2.5)MG/3ML NEB HHN SCH ×4 (02:24→21:21)
[2019-04-19 05:43] LABS: HEMATOCRIT. 37.9 % (42.0-52.0); HEMOGLOBIN. 12.3 g/dL (14.0-18.0); MEAN CORPUSCULAR HEMOGLOBIN 27.5 pg (28.0-32.0); MEAN CORPUSCULAR VOLUME 84.6 fL (80.0-94.0); MEAN PLATELET VOLUME 9.3 fl (7.4-10.4); PLATELET 72 x1000/uL (130-400); RED BLOOD CELL COUNT 4.48 mill/uL (4.7-6.1)
[2019-04-19] MEDS: PIPERACILLIN/TAZOBACTAM 2.25 G in DEXTROSE 5% WATER 50 ML IV SCH ×4 (05:58→18:25)
[2019-04-19] MEDS ORDERED: HYDROCORTISONE SOD SUCCINATE 100 MG/2 ML VIAL IV SCH (06:00)
[2019-04-19 06:10] LABS: PHOSPHORUS 4.7 mg/dL (2.5-4.9)
[2019-04-19] MEDS: HYDROCORTISONE SOD SUCCINATE 100 MG/2 ML VIAL IV SCH ×2 (07:39→21:00)
[2019-04-19] MEDS: PANTOPRAZOLE SODIUM 40 MG/VIAL IV SCH (07:39)
[2019-04-19] MEDS: LEVOTHYROXINE SODIUM 25MCG TABLET PO SCH (07:39)
[2019-04-19] MEDS: MIDODRINE HCL 2.5MG TABLET PO SCH ×3 (07:39→18:24)
[2019-04-19] MEDS: MORPHINE SULFATE 2 MG/ML CPJ (NOT FOR IM USE) IV PRN (07:48)
[2019-04-19 09:37] LABS: NUCLEATED RED BLOOD CELLS 1 /100 WBC
[2019-04-19 09:38] LABS: PLATELET ESTIMATE DECREASED
[2019-04-20] MEDS: PIPERACILLIN/TAZOBACTAM 2.25 G in DEXTROSE 5% WATER 50 ML IV SCH ×4 (00:52→17:10)
[2019-04-20] MEDS: TRAMADOL 50MG TABLET PO PRN (00:52)
[2019-04-20] MEDS: IPRATROPIUM/ALBUTEROL 0.5-3(2.5)MG/3ML NEB HHN SCH ×4 (03:00→21:48)
[2019-04-20 04:00] VITALS: BP 115/60
[2019-04-20] MEDS: HYDROCORTISONE SOD SUCCINATE 100 MG/2 ML VIAL IV SCH ×2 (05:16→17:07)
[2019-04-20 08:00] VITALS: BP 99/64
[2019-04-20 08:19] LABS: HEMATOCRIT. 36.7 % (42.0-52.0); HEMOGLOBIN. 11.8 g/dL (14.0-18.0); MEAN CORPUSCULAR HEMOGLOBIN 27.1 pg (28.0-32.0); MEAN CORPUSCULAR VOLUME 84.7 fL (80.0-94.0); MEAN PLATELET VOLUME 9.2 fl (7.4-10.4); PLATELET 58 x1000/uL (130-400); RED BLOOD CELL COUNT 4.34 mill/uL (4.7-6.1); RED CELL DISTRIBUTION WIDTH 18.4 % (11.6-14.6)
[2019-04-20] MEDS: PANTOPRAZOLE SODIUM 40 MG/VIAL IV SCH (08:30)
[2019-04-20] MEDS: LEVOTHYROXINE SODIUM 25MCG TABLET PO SCH (08:30)
[2019-04-20] MEDS: MIDODRINE HCL 2.5MG TABLET PO SCH ×3 (08:31→17:07)
[2019-04-20 08:43] LABS: CHLORIDE 98 mEq/L (98-107)
[2019-04-20 08:56] LABS: PHOSPHORUS 5.3 mg/dL (2.5-4.9)
[2019-04-20 12:00] VITALS: BP 105/69
[2019-04-20] MEDS ORDERED: IPRA3AMP9 HHN (14:26)
[2019-04-20] MEDS ORDERED: MIDO2.5T PO (14:26)
[2019-04-20] MEDS ORDERED: HYDR10TA PO ×2 (14:27→14:28)
[2019-04-20] MEDS ORDERED: CORT25 PO (14:51)
[2019-04-20 16:00] VITALS: BP 92/68
[2019-04-20] MEDS ORDERED: VANCOMYCIN 1 G PREMIX 200 ML IV NR (17:00)
[2019-04-20 17:02] VITALS: BP_SYST 92; BP_SYST 95; BP_DIAS 65; BP_DIAS 68
[2019-04-20 20:00] VITALS: BP 95/58
[2019-04-21] MEDS ORDERED: FAMOTIDINE 20MG/2ML VIAL IV SCH (09:00)
[2019-04-21 17:25] LABS: PLATELET ESTIMATE DECREASED
== END 2019-04-20 23:10 | DRG 871 ==
LOC: ER 11:45 → EDBEDREQ 14:37 → EDBEDREQSVC 14:37 → EDBEDREQTM 14:37 → EDBEDREQ 15:30 → ENRESERV 17:06 → CVICU 17:44 → 8WST 04-19 11:40
PROVIDERS: ADMIT Family Medicine; ATTEND Family Medicine
PROC: 5A1D70Z Performance of Urinary Filtration, Intermittent, Less than 6 Hours Per Day (ICD-10-PCS; principal; 2019-04-16)
PROC: 05HY33Z Insertion of Infusion Device into Upper Vein, Percutaneous Approach (ICD-10-PCS; 2019-04-16)
PROC: B54MZZZ Ultrasonography of Right Upper Extremity Veins (ICD-10-PCS; 2019-04-16)
PROC: 5A1D70Z Performance of Urinary Filtration, Intermittent, Less than 6 Hours Per Day (ICD-10-PCS; 2019-04-17)
PROC: 5A1D70Z Performance of Urinary Filtration, Intermittent, Less than 6 Hours Per Day (ICD-10-PCS; 2019-04-20)
DX: A41.9 Sepsis, unspecified organism (principal); E43 Unspecified severe protein-calorie malnutrition; G93.41 Metabolic encephalopathy; J96.01 Acute respiratory failure with hypoxia; N18.6 End stage renal disease; R65.21 Severe sepsis with septic shock; I50.33 Acute on chronic diastolic (congestive) heart failure; J18.9 Pneumonia, unspecified organism; J44.1 Chronic obstructive pulmonary disease with (acute) exacerbation; I48.20 Chronic atrial fibrillation, unspecified; I42.9 Cardiomyopathy, unspecified; D68.9 Coagulation defect, unspecified; I13.2 Hypertensive heart and chronic kidney disease with heart failure and with stage 5 chronic kidney disease, or end stage renal disease; E87.1 Hypo-osmolality and hyponatremia; I48.92 Unspecified atrial flutter; N17.9 Acute kidney failure, unspecified; Z68.41 Body mass index [BMI] 40.0-44.9, adult; D64.9 Anemia, unspecified; D69.6 Thrombocytopenia, unspecified; R74.0 Nonspecific elevation of levels of transaminase and lactic acid dehydrogenase [LDH]; R73.9 Hyperglycemia, unspecified; B95.2 Enterococcus as the cause of diseases classified elsewhere; E83.39 Other disorders of phosphorus metabolism; E87.5 Hyperkalemia; I25.10 Atherosclerotic heart disease of native coronary artery without angina pectoris; I73.9 Peripheral vascular disease, unspecified; K72.90 Hepatic failure, unspecified without coma; Z86.718 Personal history of other venous thrombosis and embolism; Z87.891 Personal history of nicotine dependence; Z95.810 Presence of automatic (implantable) cardiac defibrillator; Z95.828 Presence of other vascular implants and grafts; Z88.8 Allergy status to other drugs, medicaments and biological substances; Z79.899 Other long term (current) drug therapy; Z99.2 Dependence on renal dialysis; I25.2 Old myocardial infarction
CPT/HCPCS: 36415; 36600; 71045; 76700; 76937; 80048; 80053; 80202; 81003; 82024; 82375; 82533; 82553; 82805; 82962; 83036; 83605; 83735; 83880; 84100; 84145; 84439; 84443; 84484; 84550; 85025; 86376; 87804; 93005; 93923; 94640; 99291; A6261; C1725; C9113; J1720; J2270; J2543; J3370; J3490; J7030; J7040; J7060; P9047